=== PATIENT | female | born 2000 | race Caucasian/White ===

== ENCOUNTER 2020-06-14 10:32 | Emergency (ER) | payer BC, MEDICAID, SELFPAY ==
[2020-06-14 10:51] VITALS: BP 128/75; PULSE 87; RESP 18; TEMP 36.1; O2SAT 100
--- NOTE | 2020-06-14 11:12 | ED.EAR ---
HPI - Ear Problem General Chief complaint: Ear Stated complaint: Bilateral ear pain Source: patient and RN notes reviewed Mode of arrival: ambulatory Limitations: no limitations History of Present Illness HPI Narrative: This is a 20-year-old Y female who presented to urgent care today with complaints of bilateral ear pain. According to patient she experience a bloody fluid discharge from her left ear approximately 1 week ago. Today she developed severe pain to a 7 out of 10 in both ears. Patient did not do anything at home to relieve her pain. She does have decreased hearing in her left ear. She no longer has a discharge from either ear. the patient denies SOB, CP, palpitation, extremity numbness, lightheadedness, dizziness, constipation, diarrhea, chills, or fever. Related Data Home Medications Medication Instructions Recorded Confirmed levonorgestrel [Mirena] 1 device INTRAUTERINE ONCE 06/14/20 06/14/20 Allergies Allergy/AdvReac Type Severity Reaction Status Date / Time No Known Allergies Allergy Verified 06/14/20 10:45 Review of Systems Review of Systems: All systems reviewed & are unremarkable except as noted in HPI and below (10 point system review) [facility] Past Medical History Medical History Primary immune deficiency disorder Surgical History Surgical History History of myringotomy Hx of tonsillectomy Social History Social History Tobacco type: e-cigarettes/vaping Alcohol intake: never Substance use: never Gender identity (if verbalized by the patient): Female Exam Narrative: Exam Narrative: GENERAL: This is a well-nourished, well-developed patient, in no apparent distress. HEAD: normocephalic, atraumatic. EYES: PERRL. Sclera clear/white. Vision is grossly intact. EARS: Right side bulging eardrum erythema and edema to canals. Hearing grossly intact. Excessive amount of cerumen buildup NOSE: External nose normal with no obvious nasal discharge, nares without redness, no rhinorrhea. THROAT: Mucous membranes moist, posterior pharynx clear. NECK: Neck supple, non-tender without lymphadenopathy, masses or thyromegaly. CARDIOVASCULAR: Regular rate and rhythm without murmurs, gallops, or rubs. RESPIRATORY: Clear to auscultation. Breath sounds equal bilaterally. No wheezes, rales, or rhonchi. GASTROINTESTINAL: Abdomen soft, non-tender, nondistended. Bowel sounds are active. No hepato-splenomegaly, or palpable masses. No guarding. SKIN: warm, intact with no suspicious lesions or rash, good texture and turgor. NEURO: awake, alert, and oriented to person, place and time. There were no obvious focal neurologic abnormalities. Steady gait EXTREMITIES: Normal range of motion. No edema. No calf tenderness. Negative Homans sign bilaterally. BACK: Nontender without deformity or crepitance. No flank tenderness. Course Vital Signs Vital signs: Vital Signs Temperature 96.9 F L 06/14/20 10:51 Pulse Rate 87 06/14/20 10:51 Respiratory Rate 18 06/14/20 10:51 Blood Pressure 128/75 06/14/20 10:51 Pulse Oximetry 100 06/14/20 10:51 Temperature 96.9 F L 06/14/20 10:51 Pulse Rate 87 06/14/20 10:51 Respiratory Rate 18 06/14/20 10:51 Blood Pressure 128/75 06/14/20 10:51 Pulse Oximetry 100 06/14/20 10:51 Medical Decision Making Vital Signs Vital Signs: Vital Signs Temperature 96.9 F L 06/14/20 10:51 Pulse Rate 87 06/14/20 10:51 Respiratory Rate 18 06/14/20 10:51 Blood Pressure 128/75 06/14/20 10:51 Pulse Oximetry 100 06/14/20 10:51 Temperature 96.9 F L 06/14/20 10:51 Pulse Rate 87 06/14/20 10:51 Respiratory Rate 18 06/14/20 10:51 Blood Pressure 128/75 06/14/20 10:51 Pulse Oximetry 100 06/14/20 10:51 Discharge Plan Discharge Clinical Impression: Otitis media Qu
== END 2020-06-14 11:15 | disposition home or self-care (01) ==
PROVIDERS: Emergency Provider Nurse Practitioner
DX: H66.90 Otitis media, unspecified, unspecified ear (principal); F17.200 Nicotine dependence, unspecified, uncomplicated; D84.9 Immunodeficiency, unspecified
CPT/HCPCS: 99213; G0463

== ENCOUNTER 2021-01-02 09:19 | Emergency (ER) | payer BC, MEDICAID, SELFPAY ==
[2021-01-02 09:31] VITALS: BP 98/61; PULSE 68; RESP 16; TEMP 37.2; O2SAT 99
--- NOTE | 2021-01-02 09:56 | ED.EAR ---
HPI - Ear Problem General Chief complaint: Ear Stated complaint: BILATERAL EAR PAIN Time Seen by Provider: 01/02/21 09:50 Source: patient, RN notes reviewed and old records reviewed Mode of arrival: ambulatory Limitations: no limitations History of Present Illness HPI Narrative: 20 year old female who presents to [facility] care with complaints of bilateral ear pain since yesterday. Patient reports that she used OTC ear drops which made her right ear hurt worse and has taken Ibuprofen for her discomfort. Patient has had prior ear problems with previous tubes in her ears and also Tympanoplasty to her right ear while growing up with still intermittent episodes of ear infections. Patient voices pain is sharp and aching rates her pain7/10, has not been swimming. Denies any sore throat, sinus drainage or congestion, cough or any shortness of breath. has not had COVID vaccine. MD Complaint: ear pain Location: bilateral Duration: constant Treatment prior to arrival: eardrops and other (ibuprofen) Related Data Home Medications Medication Instructions Recorded Confirmed levonorgestrel [Mirena] 1 device INTRAUTERINE ONCE 06/14/20 01/02/21 Allergies Allergy/AdvReac Type Severity Reaction Status Date / Time No Known Allergies Allergy Verified 01/02/21 09:37 Review of Systems Review of Systems: CONSTITUTIONAL: Denies fever, chills, or sweats. EYES: Denies visual changes, redness, or discharge. ENT: Denies rhinorrhea, congestion, sore throat, positive for bilateral otalgia, some decreased hearing right ear. CARDIOVASCULAR: Denies chest pain, palpitations, or edema. RESPIRATORY: Denies cough or dyspnea. GASTROINTESTINAL: Denies abdominal pain, nausea, vomiting, or diarrhea. GENITOURINARY: Denies dysuria or hematuria. SKIN: Denies rash or itching. MUSCULOSKELETAL: Denies back pain, joint pain, or myalgia. NEUROLOGIC: Denies headache, numbness, or weakness. PSYCHIATRIC: Denies anxiety or depression. All systems reviewed & are unremarkable except as noted in HPI and below PMFSH Past Medical History Medical History (Updated 01/02/21 @ 10:17 by Janett Silvestre NP) Asthma Ear infection Primary immune deficiency disorder Surgical History Surgical History History of myringotomy Hx of tonsillectomy Family History Family History (Updated 01/02/21 @ 10:49 by Janett Silvestre NP) Other No significant family history Social History Social History Tobacco type: e-cigarettes/vaping Alcohol intake: never Substance use: never Gender identity (if verbalized by the patient): Female Comments At time of signature, agree with nursing past medical, surgical, social and family history. There is no relevant family history pertinent to the presenting complaint Exam Narrative: GENERAL: Well-appearing, well-nourished, and in no acute distress. HEAD: Normocephalic, atraumatic. EYES: PERRLA and EOMI. ENT: Nares clear, no rhinorrhea or epistaxis. Mucous membranes moist.TM right red and bulging with no drainage noted, Left TM normal with good light reflex, throat pink with no lesions or exudates, no tonsils present. NECK: Supple. no lymphadenopathy CHEST: Clear to auscultation. No respiratory distress.SAO2 99% on room air HEART: Regular rate and rhythm. No murmur heard. Normal peripheral pulses. ABDOMEN: Soft, nontender, nondistended, normal active bowel sounds. EXTREMITIES: Normal range of motion. No edema. SKIN: Warm, dry, no rash. NEURO: No focal deficits. Alert and oriented x3. Course Vital Signs Vital signs: Vital Signs Temperature 37.2 C 01/02/21 09:31 Pulse Rate 68 01/02/21 09:31 Respiratory Rate 16 01/02/21 09:31 Blood Pressure 98/61 L 01/02/21 09:31 Pulse Oximetry 99 01/02/21 09:31 Temperature 37.2 C 01/02/21 09:31 Pulse Rate 68 01/02/21 09:31 Respiratory Rate 16 01/02/21 09:31 B
== END 2021-01-02 10:05 | disposition home or self-care (01) ==
PROVIDERS: Emergency Provider Registered Nurse; PCP Pediatrics
DX: H65.01 Acute serous otitis media, right ear (principal); F17.200 Nicotine dependence, unspecified, uncomplicated; J45.909 Unspecified asthma, uncomplicated
CPT/HCPCS: 99213; G0463

== ENCOUNTER 2021-02-23 08:26 | Emergency (ER) | payer BC, MEDICAID, SELFPAY ==
[2021-02-23 08:35] VITALS: BP 105/69; PULSE 65; RESP 16; TEMP 36.4; O2SAT 99
--- NOTE | 2021-02-23 08:45 | ED.SYNCOPE ---
HPI - Syncope General Chief Complaint: Dizziness Stated Complaint: dizziness Time Seen by Provider: 02/23/21 08:46 Source: patient Mode of arrival: ambulatory Limitations: no limitations History of Present Illness HPI narrative: Mary Jane Grande is a 20 yo female with no PMH who comes to [facility] after having a single syncopal episode working at [employer]. She was sitting down drinking a glass of water and fell backwards was unconscious for a few seconds. This is a third time this happened she has already been worked up at the emergency room in the past and used a art class model and nothing was she detected. No shortness of breath, no diaphoresis. Denies or any relation to her menstrual cycle Related Data Home Medications Medication Instructions Recorded Confirmed No Home Medications 02/23/21 02/23/21 Allergies Allergy/AdvReac Type Severity Reaction Status Date / Time No Known Allergies Allergy Verified 02/23/21 08:38 Review of Systems Review of Systems: CONSTITUTIONAL: Denies fever, chills, sweats. EYES: Denies visual changes, redness, discharge. ENT: Denies rhinorrhea, congestion, sore throat, otalgia. CARDIOVASCULAR: Denies chest pain, palpitations, edema. RESPIRATORY: Denies dyspnea, wheezing, cough GASTROINTESTINAL: Denies abdominal pain, nausea, vomiting, diarrhea. GENITOURINARY: Denies dysuria, hematuria, abnormal discharge SKIN: Denies rash or itching. NEUROLOGIC: Denies numbness, or focal weakness. Syncopal episode this morning PSYCHIATRIC: Denies anxiety or depression. [facility] Past Medical History Medical History Asthma Ear infection Primary immune deficiency disorder Surgical History Surgical History History of myringotomy Hx of tonsillectomy Family History Family History Other No significant family history Social History Social History Tobacco type: e-cigarettes/vaping Alcohol intake: never Substance use: never Gender identity (if verbalized by the patient): Female Comments At time of signature, I agree with nursing past medical, surgical, social and family history. There is no relevant family history pertinent to the presenting complaint. Exam Narrative: GENERAL: This is a well-nourished, well-developed patient, in mild distress. HEAD: normocephalic, atraumatic. EYES: PERRL. Sclera clear/white. Vision is grossly intact. EARS: External ears normal, auditory canals clear and without drainage, TMs normal without perforation. Hearing grossly intact. NOSE: External nose normal without nasal discharge, nares without redness, no rhinorrhea. THROAT: Mucous membranes moist, posterior pharynx pink NECK: Neck supple, non-tender CARDIOVASCULAR: Regular rate and rhythm without murmurs, gallops, or rubs. RESPIRATORY: Clear to auscultation. Breath sounds equal bilaterally. No wheezes, rales, or rhonchi. GASTROINTESTINAL: Abdomen soft, SKIN: warm, intact with no suspicious lesions or rash, good texture and turgor. NEURO: awake, alert, and oriented to person, place and time. There were no obvious focal neurologic abnormalities. Steady gait EXTREMITIES: Normal range of motion. BACK: Nontender without deformity Course Course Emergency Course: Patient comes to [facility] stating that she has syncopal episode at work this morning states she has eaten and has no medical conditions that would cause this but she has had 2 prior syncopal episodes. She is to work done including EKGs before Blood sugar 78 an EKG-heartbeat 56, no axis deviation, QT QTC 386/378 no NM changes no ST elevation Patient recommended to rest and hydrate well today and follow-up with a primary care physician or with the ER if the symptoms return Vital Signs Vital signs: Vital Signs Temper
--- NOTE | 2021-02-23 08:47 | ECG_ITS ---
Measurements Intervals [place] Rate: 56 P: 56 FL: 128 QRS: 77 QRSD: 79 T: 66 QT: 386 QTc: 374 Interpretive Statements SINUS BRADYCARDIA WITH SINUS ARRHYTHMIA RSR' IN V1 OR V2, PROBABLY NORMAL VARIANT BORDERLINE ECG Electronically Signed On 02-23-2021 11:55:12 CDT by Danny Wilson D.O.
[2021-02-23 09:06] LABS: Glucose Point of Care 78 mg/dl (65-105)
== END 2021-02-23 09:32 | disposition home or self-care (01) ==
PROVIDERS: Emergency Provider Nurse Practitioner
DX: R55 Syncope and collapse (principal); J45.909 Unspecified asthma, uncomplicated; F17.200 Nicotine dependence, unspecified, uncomplicated
CPT/HCPCS: 82948; 93005; 99213; G0463